=== PATIENT | female | born 1975 | race Caucasian/White ===

== ENCOUNTER 2019-12-23 20:45 | Emergency (ER) | payer BC, MEDICAID, OTHER ==
[2019-12-23] MEDS ORDERED: Ketorolac 60 MG/2 ML SDV IM ONE (21:38)
--- NOTE | 2019-12-23 21:43 | EDM.PDOC ---
ED HPI GENERAL MEDICAL PROBLEM - General Chief Complaint: ENT Problem Stated Complaint: TOOTH PAIN Time Seen by Provider: 12/23/19 21:35 Source of Information: Reports: Patient, Family, RN Notes Reviewed History Limitations: Reports: No Limitations - History of Present Illness INITIAL COMMENTS - FREE TEXT/NARRATIVE: 44-year-old female presents emergency department a complaint of dental pain, she states this is developed over the last 24 hours she was actually into see her dentist on Wednesday for some dental work on 1 of her upper teeth this pain started lower jaw she is unsure if she chipped her tooth or what happened pain started it is tender around the jaw or region she has not had any fevers - Related Data Allergies Allergy/AdvReac Type Severity Reaction Status Date / Time ceftriaxone [From Rocephin] Allergy Hives Verified 12/23/19 21:00 morphine Allergy Blurred Verified 12/23/19 21:00 Vision Penicillins Allergy Difficulty Verified 12/23/19 21:00 Swallowing Home Meds: Home Meds NK [No Known Home Meds] 12/23/19 [History] Past Medical History - Past Surgical History GI Surgical History: Reports: Cholecystectomy Female Surgical History: Reports: Breast Reduction, Section, Endometrial Ablation, Hysterectomy, Tubal Ligation Social & Family History - Tobacco Use Smoking Status *Q: Never Smoker ED ROS ENT - Review of Systems Review Of Systems: See Below Constitutional: Reports: No Symptoms HEENT: Reports: Dental Pain Respiratory: Reports: No Symptoms ED EXAM, ENT - Physical Exam Exam: See Below Text/Narrative:: Mouth mucosa is moist and pink no erythema exudate known soft palate tongue is midline uvula is midline tooth #4 is broken it is tender to the touch I do not appreciate any edema around that tooth Exam Limited By: No Limitations General Appearance: Alert, WD/WN, No Apparent Distress Respiratory/Chest: No Respiratory Distress Course - Vital Signs Last Recorded V/S: Last Vital Signs Temp 97.6 F 12/23/19 21:04 Pulse 92 12/23/19 21:04 Resp 16 12/23/19 21:04 BP 147/97 H 12/23/19 21:04 Pulse Ox 97 12/23/19 21:04 - Orders/Labs/Meds Meds: Medications Discontinued Medications Generic Name Dose Route Start Last Admin Trade Name Freq PRN Reason Stop Dose Admin Ketorolac Tromethamine 60 mg 12/23/19 21:38 Toradol IM 12/23/19 21:39 ONETIME ONE Departure - Departure Time of Disposition: 21:42 Disposition: Home, Self-Care 01 Condition: Fair Clinical Impression: Dental abscess - Discharge Information Instructions: Dental Abscess Referrals: PCP,None [Primary Care Provider] - Additional Instructions: Take the antibiotics for 10 days clindamycin 300 mg every 6 hours, use hydrocodone as needed for pain control please contact dentistry on Wednesday for further evaluation and treatment call return to the emergency department worsening of symptoms Sepsis Event Note (ED) - Evaluation Sepsis Screening Result: No Definite Risk - Focused Exam Vital Signs: Vital Signs Temp Pulse Resp BP Pulse Ox 12/23/19 21:04 97.6 F 92 16 147/97 H 97 12/23/19 20:57 97.6 F 92 16 147/97 H 97 - Assessment/Plan Plan: Assessment Acuity = acute Site and laterality = dental abscess Etiology = broken tooth #20 Manifestations = none Location of injury = Home Lab values = none Plan Elected to treat empirically clindamycin 300 mg p.o. every 6 hours x10 days she will contact dentistry on Wednesday, pain control she was given Toradol IM while in the ED then discharged home hydrocodone 5/325 1 tab p.o. 3 times daily PRN total #6 This note was dictated using [employer] voice recognition software please call with any questions on syntax or grammar.
== END 2019-12-23 21:55 | disposition home or self-care (01) ==
LOC: JP.ED 20:45
DX: K04.7 Periapical abscess without sinus (principal); K03.81 Cracked tooth; Z88.0 Allergy status to penicillin; Z88.5 Allergy status to narcotic agent; Z88.1 Allergy status to other antibiotic agents; Z90.49 Acquired absence of other specified parts of digestive tract
CPT/HCPCS: 96372; 99282; J1885; 99283